=== PATIENT | female | born 2000 | race Caucasian/White ===

== ENCOUNTER 2021-03-20 04:29 | Emergency (ER) | payer OTHER ==
[2021-03-20 04:39] VITALS: TEMP 98.5; BMI 36.6
[2021-03-20] MEDS ORDERED: SODIUM CHLORIDE 1,000 ML IV STA (04:39)
[2021-03-20] MEDS ORDERED: ONDANSETRON 4 MG/2 ML VIAL IVPUSH ONE (04:39)
[2021-03-20] MEDS ORDERED: ONDANSETRON 4 MG/2 ML VIAL ONE (04:45)
[2021-03-20 06:04] LABS: BASO % 0.2 % (0-2.0); EOS % 0.1 % (0-4.5); HEMATOCRIT 36.8 % (32.4-45.2); HEMOGLOBIN 12.8 GM/dL (10.7-15.3); LYMPH % 10.3 % (8-40); MCH 32.1 pg (25.7-33.7); MCHC 34.9 g/dl (32.0-36.0); MEAN CELL VOLUME 91.8 fl (80-96); MEAN PLT VOLUME 9.1 fl (7.5-11.1); MONO % 7.2 % (3.8-10.2); NEUT % 82.2 % (42.8-82.8); PLATELET COUNT 224 10^3/uL (134-434); RDW 12.2 % (11.6-15.6); WHITE BLOOD COUNT 11.5 K/mm3 (4.0-10.0)
[2021-03-20 06:24] LABS: CHLORIDE 105 mmol/L (98-107); SODIUM 142 mmol/L (136-145)
[2021-03-20 06:27] LABS: ALBUMIN 3.7 g/dl (3.4-5.0); CALCIUM 8.5 mg/dL (8.5-10.1)
[2021-03-20 06:28] LABS: BLOOD UREA NITROGEN 18.8 mg/dL (7-18); CO2 24 mmol/L (21-32); GLUCOSE,RANDOM 116 mg/dL (74-106); LIPASE 88 U/L (73-393); MAGNESIUM 1.7 mg/dL (1.8-2.4)
[2021-03-20 06:30] LABS: SGPT/ALT 33 U/L (13-61)
[2021-03-20 06:31] LABS: CREATININE 0.9 mg/dL (0.55-1.3); SGOT/AST 17 U/L (15-37)
[2021-03-20 06:32] LABS: BILIRUBIN,TOTAL 0.4 mg/dL (0.2-1); TOT PROT 7.2 g/dl (6.4-8.2)
[2021-03-20 06:33] LABS: ALK PHOS 61 U/L (45-117)
[2021-03-20 06:40] LABS: ANION GAP 13 MMOL/L (8-16)
[2021-03-20] MEDS ORDERED: POTASSIUM CHLORIDE ORAL LIQUID 20 MEQ/15 ML PO ONE (06:45)
[2021-03-20] MEDS ORDERED: KCL 10 MEQ IVPB 10 MEQ/100 ML INFUS.BAG IVPB SCH (06:45)
[2021-03-20] MEDS ORDERED: KCL 10 MEQ IVPB 10 MEQ/100 ML INFUS.BAG IVPB ONE (06:53)
[2021-03-20] MEDS ORDERED: POTASSIUM CHLORIDE ORAL LIQUID 20 MEQ/15 ML ONE (06:53)
[2021-03-20 07:09] VITALS: BP 106/55; PULSE 19
[2021-03-20] MEDS ORDERED: MAGNESIUM SULF 50% (8.12 MEQ/2 ML-1 GM VIAL) IVPB ONE (07:40)
[2021-03-20] MEDS ORDERED: MAGNESIUM 1GM/D5W - 1 GM/100 ML IVPB IVPB ONE (08:34)
[2021-03-20 11:58] LABS: CALCIUM 8.5 mg/dL (8.5-10.1)
[2021-03-20 11:59] LABS: BLOOD UREA NITROGEN 14.8 mg/dL (7-18)
[2021-03-20 12:02] LABS: CREATININE 0.7 mg/dL (0.55-1.3)
== END 2021-03-20 13:30 | disposition home or self-care (01) ==
LOC: JER 04:29
PROC: 3E033GC Introduction of Other Therapeutic Substance into Peripheral Vein, Percutaneous Approach (ICD-10-PCS; principal; 2021-03-20)
DX: T48.6X5A Adverse effect of antiasthmatics, initial encounter (principal); E87.6 Hypokalemia
CPT/HCPCS: 36415; 80048; 80053; 82550; 83690; 83735; 84484; 84703; 85025; 93005; 93010; 99284-25

== ENCOUNTER 2023-02-13 18:23 | Emergency (ER) | payer OTHER ==
[2023-02-13 18:34] VITALS: BP 117/79; PULSE 94; RESP 18; TEMP 98.5; BMI 32.1
[2023-02-13] MEDS ORDERED: ACETAMINOPHEN 1000 MG/100 ML BAG IVPB ONE (20:14)
[2023-02-13] MEDS ORDERED: ACETAMINOPHEN INJECTION 100 ML IVPB ONE (20:35)
[2023-02-13 20:54] LABS: BASO % 0.4 % (0-2.0); EOS % 1.1 % (0-4.5); HEMATOCRIT 36.3 % (32.4-45.2); HEMOGLOBIN 12.9 GM/dL (10.7-15.3); LYMPH % 24.9 % (8-40); MCH 31.9 pg (25.7-33.7); MCHC 35.6 g/dl (32.0-36.0); MEAN CELL VOLUME 89.8 fl (80-96); MEAN PLT VOLUME 9.1 fl (7.5-11.1); MONO % 7.5 % (3.8-10.2); NEUT % 66.1 % (42.8-82.8); PLATELET COUNT 223 10^3/uL (134-434); RBC 4.04 M/mm3 (3.60-5.2); RDW 12.1 % (11.6-15.6); WHITE BLOOD COUNT 8.1 K/mm3 (4.0-10.0)
[2023-02-13 21:06] LABS: EPI CELLS >36 /uL (0-25.1); HYALINE CASTS 4 /uL (0-3.1); INR 1.11 (0.83-1.09); POTASSIUM 3.9 mmol/L (3.5-5.1); PROTHROMBIN TIME (PATIENT) 12.9 SEC (9.7-13.0); URINE APPEARANCE CLEAR; URINE BACTERIA 2001 /uL (0-1359); URINE BILIRUBIN 1+ (NEGATIVE); URINE COLOR DK YELLOW; URINE GLUCOSE (UA) NEGATIVE (NEGATIVE); URINE KETONE 1+ (NEGATIVE); URINE LEUK ESTERASE 1+ (NEGATIVE); URINE NITRITE NEGATIVE (NEGATIVE); URINE PROTEIN 1+ (NEGATIVE); URINE RBC 7 /uL (0-23.9); URINE WBC 98 /uL (0-25.8)
[2023-02-13 21:08] LABS: ACTIVATED PTT 27.1 SECONDS (25.2-36.5); CALCIUM 8.7 mg/dL (8.5-10.1)
[2023-02-13 21:09] LABS: ALBUMIN 3.3 g/dl (3.4-5.0)
[2023-02-13 21:12] LABS: CREATININE 0.6 mg/dL (0.55-1.3)
[2023-02-13 21:14] LABS: BILIRUBIN,TOTAL 0.2 mg/dL (0.2-1); TOT PROT 6.8 g/dl (6.4-8.2)
[2023-02-13] MEDS ORDERED: CEPHALEXIN MONOHYDRATE 500 MG CAPSULE (UD) PO ONE (22:14)
[2023-02-13] MEDS ORDERED: CEPHALEXIN MONOHYDRATE 500 MG CAPSULE (UD) ONE (22:21)
== END 2023-02-13 23:19 | disposition home or self-care (01) ==
LOC: JER 18:23
DX: O26.891 Other specified pregnancy related conditions, first trimester (principal); R10.2 Pelvic and perineal pain; O20.9 Hemorrhage in early pregnancy, unspecified; O23.41 Unspecified infection of urinary tract in pregnancy, first trimester; Z3A.12 12 weeks gestation of pregnancy
CPT/HCPCS: 36415; 76817-TC; 80053; 81003; 84702; 85025; 85610; 85730; 86850; 86900; 86901; 87086; 99284-25

== ENCOUNTER 2023-05-27 07:50 | Emergency (ER) | payer OTHER ==
[2023-05-27 08:01] VITALS: RESP 18; BMI 33.6
[2023-05-27 10:35] VITALS: BP 110/66; PULSE 86; TEMP 97.7
== END 2023-05-27 14:00 | disposition home or self-care (01) ==
LOC: JER 07:50 → JERFT 07:50 → JER 14:00
DX: O26.892 Other specified pregnancy related conditions, second trimester (principal); Z04.3 Encounter for examination and observation following other accident; W10.8XXA Fall (on) (from) other stairs and steps, initial encounter; Z3A.27 27 weeks gestation of pregnancy
CPT/HCPCS: 99282-25

== ENCOUNTER 2023-09-01 08:35 | Inpatient (IN) | payer OTHER ==
[2023-09-01 09:45] LABS: INR 0.97 (0.83-1.09); PROTHROMBIN TIME (PATIENT) 11.2 SEC (9.7-13.0)
[2023-09-01 09:48] LABS: ACTIVATED PTT 24.5 SECONDS (25.2-36.5)
[2023-09-01 09:53] LABS: BASO % 0.3 % (0-2.0); HEMATOCRIT 32.3 % (32.4-45.2); LYMPH % 23.3 % (8-40); MCH 31.1 pg (25.7-33.7); MCHC 34.2 g/dl (32.0-36.0); MEAN PLT VOLUME 8.8 fl (7.5-11.1); MONO % 6.3 % (3.8-10.2); NEUT % 69.1 % (42.8-82.8); PLATELET COUNT 219 10^3/uL (134-434); RBC 3.55 M/mm3 (3.60-5.2); WHITE BLOOD COUNT 6.9 K/mm3 (4.0-10.0)
[2023-09-01 09:58] VITALS: BMI 37.9
[2023-09-01 10:09] LABS: POTASSIUM 3.8 mmol/L (3.5-5.1)
[2023-09-01 10:12] LABS: CALCIUM 8.9 mg/dL (8.5-10.1)
[2023-09-01 10:13] LABS: BLOOD UREA NITROGEN 9.4 mg/dL (7-18)
[2023-09-01 10:16] LABS: CREATININE 0.6 mg/dL (0.55-1.3)
[2023-09-01 14:33] LABS: COCAINE, UR NEGATIVE (NEGATIVE); METHADONE, UR NEGATIVE (NEGATIVE); OPIATES, URI NEGATIVE (NEGATIVE); URINE AMPHETAMINES NEGATIVE (NEGATIVE); URINE BARBITURATES NEGATIVE (NEGATIVE); URINE BENZODIAZEPINES NEGATIVE (NEGATIVE)
[2023-09-01 14:34] LABS: PHENCYCLIDINE,URINE NEGATIVE (NEGATIVE)
[2023-09-01] MEDS ORDERED: OXYTOCIN 30 UNITS in 0.9% NS 30 UNIT/500 ML INFUS.BAG IVPB ONE (15:29)
[2023-09-01] MEDS: ELECTROLYTE-148 SOLN 1,000 ML IV SCH (15:45)
[2023-09-01] MEDS: OXYTOCIN 30 UNITS in 0.9% NS 30 UNIT/500 ML INFUS.BAG IVPB SCH (15:46)
[2023-09-01] MEDS ORDERED: FENTANYL/BUPIVACAINE/NS/PF - PCEA - 50 ML DISP.SYRIN EP ONE ×2 (19:33→22:15)
[2023-09-01] MEDS: FENTANYL/BUPIVACAINE/NS/PF - PCEA - 50 ML DISP.SYRIN EP SCH (19:50)
[2023-09-01] MEDS ORDERED: NALOXONE HCL 0.4 MG/ML VIAL IVPUSH PRN (20:07)
[2023-09-01] MEDS: DINOPROSTONE 10 MG VAGINAL SUPPOSITORY VG STA (20:42)
[2023-09-01] MEDS ORDERED: AZITHROMYCIN IVPB 500 MG/250 ML BAG IVPB ONE (23:03)
[2023-09-01] MEDS ORDERED: KETOROLAC TROMETHAMINE 30 MG/1 ML VIAL ONE (23:05)
[2023-09-01] MEDS ORDERED: OXYTOCIN 10 UNITS/ML VIAL ONE (23:05)
[2023-09-01] MEDS ORDERED: FENTANYL CITRATE/PF 50 MCG/ML VIAL ONE (23:05)
[2023-09-01] MEDS ORDERED: PHENYLEPHRINE HCL 10 MG/1 ML SINGLE DOSE VIAL ONE (23:05)
[2023-09-01] MEDS ORDERED: ceFAZolin SODIUM 1 GM VIAL ONE (23:05)
[2023-09-01] MEDS ORDERED: ONDANSETRON 4 MG/2 ML VIAL ONE (23:05)
[2023-09-01] MEDS ORDERED: morphine SULFATE/PF 1 MG/2 ML (2cc Syringe - QUVA) ONE (23:05)
[2023-09-01] MEDS: AZITHROMYCIN IVPB 500 MG/250 ML BAG IVPB STA (23:10)
[2023-09-02 01:49] LABS: CORD BASE EXCESS -6.1 mmol/L (0-2); CORD HCO3 22.9 mmHg (20-29); CORD PCO2 58.2 mmHg (30-78); CORD pH 7.212 (7.14-7.44)
[2023-09-02 02:04] LABS: VENOUS BASE EXCESS -10.3 mmol/L (-2-2); VENOUS O2 SATURATION 15.5 % (70-80); VENOUS PCO2 59.6 mmHg (38-52)
[2023-09-02 02:07] LABS: VENOUS PH 7.135 (7.310-7.410)
[2023-09-02] MEDS ORDERED: OXYTOCIN 20 UNITS in 0.9% NS 20 UNIT/1,000 ML INFUS.BAG IV ONE (03:05)
[2023-09-02 08:54] LABS: BASO % 0.1 % (0-2.0); HEMATOCRIT 27.8 % (32.4-45.2); HEMOGLOBIN 9.6 GM/dL (10.7-15.3); LYMPH % 6.9 % (8-40); MCH 31.3 pg (25.7-33.7); MCHC 34.6 g/dl (32.0-36.0); MEAN CELL VOLUME 90.6 fl (80-96); MONO % 7.2 % (3.8-10.2); NEUT % 85.8 % (42.8-82.8); PLATELET COUNT 193 10^3/uL (134-434); RBC 3.06 M/mm3 (3.60-5.2); RDW 13.8 % (11.6-15.6); WHITE BLOOD COUNT 14.1 K/mm3 (4.0-10.0)
[2023-09-02] MEDS: IBUPROFEN 800 MG/8 ML IJ IVPB PRN (09:00)
[2023-09-02] MEDS: OXYTOCIN 20 UNITS in 0.9% NS 20 UNIT/1,000 ML INFUS.BAG IV SCH (09:59)
[2023-09-02] MEDS ORDERED: oxyCODONE HCL 5 MG TABLET PO PRN (11:14)
[2023-09-02] MEDS: hydrALAZINE HCL 20 MG/ML VIAL IVPUSH ONE (19:59)
[2023-09-02] MEDS: IBUPROFEN 600 MG TABLET (FP) PO PRN (21:06)
[2023-09-02] MEDS: SIMETHICONE 80 MG TAB.CHEW (FP) PO PRN (21:09)
[2023-09-02 21:55] VITALS: RESP 18
[2023-09-02] MEDS ORDERED: BISACODYL 10 MG SUPP.RECT RC PRN (23:14)
[2023-09-03] MEDS: ACETAMINOPHEN 325 MG TABLET (FP) PO PRN (00:32)
[2023-09-03] MEDS: DIPHTH,PERTUSS(ACELL),TET 0.5 ML DISP.SYRIN IM ONE (10:37)
[2023-09-03] MEDS: PNEUMOC 20-VAL CONJ-DIP CRM/PF 0.5 ML SYRINGE IM ONE (10:38)
[2023-09-04 09:13] LABS: BASO % 0.4 % (0-2.0); EOS % 1.6 % (0-4.5); HEMATOCRIT 26.6 % (32.4-45.2); HEMOGLOBIN 8.9 GM/dL (10.7-15.3); LYMPH % 23.6 % (8-40); MCH 31.1 pg (25.7-33.7); MCHC 33.6 g/dl (32.0-36.0); MEAN CELL VOLUME 92.6 fl (80-96); MEAN PLT VOLUME 8.5 fl (7.5-11.1); MONO % 7.1 % (3.8-10.2); NEUT % 67.3 % (42.8-82.8); PLATELET COUNT 199 10^3/uL (134-434); RBC 2.87 M/mm3 (3.60-5.2); RDW 14.2 % (11.6-15.6); WHITE BLOOD COUNT 7.5 K/mm3 (4.0-10.0)
[2023-09-05 10:14] VITALS: BP 110/72; PULSE 80; TEMP 98
== END 2023-09-05 13:20 | disposition home or self-care (01) | DRG 540 ==
LOC: JLDR 08:35 → J3W 09-02 03:45
PROVIDERS: ADMIT Student in an Organized Health Care Education/Training Program; ATTEND Student in an Organized Health Care Education/Training Program
PROC: 10D00Z1 Extraction of Products of Conception, Low, Open Approach (ICD-10-PCS; principal; 2023-09-02)
DX: O48.0 Post-term pregnancy (principal); Z3A.41 41 weeks gestation of pregnancy; O61.8 Other failed induction of labor; Z37.0 Single live birth
CPT/HCPCS: 36415; 36600; 80048; 80307; 82803; 85025; 85610; 85730; 86780; 86850; 86900; 86901; 88307-TC; 90677; 90715

== ENCOUNTER 2023-11-13 06:29 | Emergency (ER) | payer OTHER ==
[2023-11-13 06:37] VITALS: BP 116/75; PULSE 77; RESP 18; TEMP 98.2; BMI 34.3
== END 2023-11-13 08:19 | disposition home or self-care (01) ==
LOC: JER 06:29
DX: N64.4 Mastodynia (principal)
CPT/HCPCS: 99282-25